=== PATIENT | female | born 1985 | race Caucasian/White ===

== ENCOUNTER → 2018-08-16 | Outpatient (CLI) | payer BC | LOC: FIMAGING 08:03 | PROVIDERS: ATTEND Advanced Practice Midwife | DX: Z12.39 Encounter for other screening for malignant neoplasm of breast (principal); Z80.3 Family history of malignant neoplasm of breast ==

== ENCOUNTER → 2018-09-05 | Outpatient (CLI) | payer BC | LOC: FIMAGING 11:52 | PROVIDERS: ATTEND Advanced Practice Midwife | DX: N63.24 Unspecified lump in the left breast, lower inner quadrant (principal) ==

== ENCOUNTER → 2018-09-27 | Outpatient (CLI) | payer BC ==
[~2018-09-27] MED LIST: BUPIVACAINE 0.5% 30 ML SDV ONE; LIDOCAINE 1% 300 MG/30 ML SDV ONE
== END ==
LOC: FIMAGING 07:22
PROC: 0HBU3ZX Excision of Left Breast, Percutaneous Approach, Diagnostic (ICD-10-PCS; principal; 2018-09-27)
DX: D24.2 Benign neoplasm of left breast (principal)
CPT/HCPCS: CPT4PN